=== PATIENT | male | born 1970 | race Caucasian/White ===

== ENCOUNTER 2018-11-02 15:39 | Inpatient (IN) | payer OTHER, MEDICAID ==
[~2018-11-02] VITALS: Ht 170.2 cm; Wt 94.8 kg
[2018-11-02 15:50] VITALS: BP_SYST 103
[2018-11-02 16:39] LABS: HEMOGLOBIN 14.4 g/dL (14.0-18.0); MEAN CORPUSCULAR HEMOGLOBIN 28 pg (27-31); MEAN CORPUSCULAR HGB CONC 33 % (32-36); MEAN CORPUSCULAR VOLUME 84 fL (79.0-98.0); PLATELET COUNT (AUTO) 124 K/uL (130-430); RED BLOOD CELL COUNT(AUTO) 5.13 MIL/uL (4.2-6.2); RED CELL DISTRIBUTION WIDTH 15.1 % (9.0-15.0); WHITE BLOOD COUNT (AUTO) 4.4 K/uL (4.8-10.8)
[2018-11-02] MEDS ORDERED: ONDANSETRON HCL 4 MG/2 ML VIAL IVP ONE (16:45)
[2018-11-02] MEDS ORDERED: IBUPROFEN 600 MG TABLET PO ONE (16:45)
[2018-11-02] MEDS ORDERED: NACL 0.9% 1,000 ML IV ONE ×2 (16:45→18:45)
[2018-11-02] MEDS ORDERED: MORPHINE 4 MG/ML INJ. SYRINGE IVP ONE (16:45)
[2018-11-02 17:00] LABS: CREATININE 1.11 mg/dL (0.55-1.30); POTASSIUM 3.5 mmol/L (3.5-5.1)
[2018-11-02 17:06] LABS: ALBUMIN 2.9 g/dL (3.4-4.8); TOTAL BILIRUBIN 0.6 mg/dL (0.0-1.0)
[2018-11-02] MEDS ORDERED: LORazepam 2 MG/ML VIAL (FOR ER USE) IVP ONE (17:15)
[2018-11-02 17:22] LABS: BAND % (MANUAL) 12 % (0-6); BASOPHILS % (MANUAL) 0 % (0-2); EOSINOPHILS % (MANUAL) 0 % (0-7); LYMPHOCYTES % (MANUAL) 7 % (20-46); MONOCYTES % (MANUAL) 12 % (0-11)
[2018-11-02 18:09] LABS: BILIRUBIN,URINE NEGATIVE (NEGATIVE); BLOOD, URINE NEGATIVE (NEGATIVE); CLARITY/URINE CLEAR (CLEAR); COLOR,URINE YELLOW (YELLOW); GLUCOSE,URINE NEGATIVE (NEGATIVE); KETONES,URINE NEGATIVE (NEGATIVE); LEUKOCYTE ESTERASE ,URINE NEGATIVE (NEGATIVE); NITRITE, URINE NEGATIVE (NEGATIVE); PH,URINE 6.5 (5.0-8.0); PROTEIN URINE TRACE (NEGATIVE); UROBILINOGEN,URINE >=8 (0.2-1.0)
[2018-11-02] MEDS ORDERED: PIPERACILLIN/TAZO 3.375 GM in NS 50 ML IV ONE (18:15)
[2018-11-02] MEDS ORDERED: LACTULOSE 20 GM/30 ML UDC PO ONE (18:15)
[2018-11-02 18:16] LABS: BACTERIA,URINE FEW /HPF (None Seen); RBC,URINE 0-3 /HPF (0-3); WBC,URINE 0-3 /HPF (0-3)
[2018-11-02] MEDS ORDERED: MORP30TA59 PO (18:25)
[2018-11-02] MEDS ORDERED: LORA-258 PO (18:25)
[2018-11-02] MEDS ORDERED: OXYC20TA55 PO (18:25)
[2018-11-02] MEDS ORDERED: PIPERACILLIN/TAZOBACTAM 3.375 GM/VIAL (ZOSYN) IV ONE ×2 (18:30→21:53)
[2018-11-02 19:20] VITALS: BP_SYST 102
[2018-11-02] MEDS ORDERED: ONDANSETRON HCL 4 MG/2 ML VIAL IVP PRN (21:00)
[2018-11-02] MEDS ORDERED: IPRATROPIUM/ALBUTEROL SULFATE 3 ML AMPUL.NEB (DUONEB) INH SCH (21:00)
[2018-11-02] MEDS ORDERED: ACETAMINOPHEN 325 MG TABLET PO PRN (21:00)
[2018-11-02] MEDS ORDERED: HYDROcodone/ACETAMIN 5-325 MG TAB (NORCO/ VICODIN) PO PRN ×2 (21:00)
[2018-11-02] MEDS ORDERED: AZITHROMYCIN 250 MG TABLET PO ONE (21:00)
[2018-11-02] MEDS ORDERED: TEMAZEPAM 15 MG CAPSULE PO PRN (21:00)
[2018-11-02] MEDS ORDERED: IPRATROPIUM/ALBUTEROL SULFATE 3 ML AMPUL.NEB (DUONEB) INH PRN (21:00)
[2018-11-02] MEDS ORDERED: oxyCODONE HCL 10 MG TAB.ER.12H PO PRN (21:00)
[2018-11-02 21:53] VITALS: BP_SYST 102
[2018-11-02] MEDS: NACL 0.9% 1,000 ML IV SCH (21:57)
[2018-11-02] MEDS: LORazepam 1 MG TABLET PO PRN (21:58)
[2018-11-02] MEDS: AZITHROMYCIN 250 MG TABLET PO SCH (21:58)
[2018-11-02] MEDS: MORPHINE SULFATE 30 MG TABLET.SA PO SCH (21:58)
[2018-11-02 23:20] VITALS: BP_SYST 92
[2018-11-02] MEDS: PIPERACILLIN/TAZO 3.375/DEX-IS 50 ML IV SCH (23:58)
[2018-11-03] MEDS: NACL 0.9% 1,000 ML IV SCH ×4 (06:07→22:30)
[2018-11-03] MEDS: PIPERACILLIN/TAZO 3.375/DEX-IS 50 ML IV SCH ×3 (06:07→17:40)
[2018-11-03 07:49] LABS: BASOPHILS % (AUTO) 0.3 % (0.0-2.0); HEMATOCRIT 38.5 % (36-54); HEMOGLOBIN 12.7 g/dL (14.0-18.0); LYMPHOCYTES % (AUTO) 25.8 % (20.5-51.5); MEAN CORPUSCULAR HEMOGLOBIN 28 pg (27-31); MEAN CORPUSCULAR HGB CONC 33 % (32-36); MEAN CORPUSCULAR VOLUME 84 fL (79.0-98.0); MONOCYTES # (AUTO) 0.3 K/uL (0.0-1.0); MONOCYTES % (AUTO) 7.8 % (1.7-9.3); NEUTROPHILS # (AUTO) 2.6 K/uL (1.8-7.7); NEUTROPHILS % (AUTO) 66.1 % (40.0-70.0); PLATELET COUNT (AUTO) 117 K/uL (130-430); RED BLOOD CELL COUNT(AUTO) 4.58 MIL/uL (4.2-6.2); RED CELL DISTRIBUTION WIDTH 15.1 % (9.0-15.0); WHITE BLOOD COUNT (AUTO) 3.9 K/uL (4.8-10.8)
[2018-11-03 08:08] LABS: ALBUMIN 2.4 g/dL (3.4-4.8); CALCIUM 7.5 mg/dL (8.4-11.0); CREATININE 1.11 mg/dL (0.55-1.30); POTASSIUM 3.3 mmol/L (3.5-5.1); TOTAL BILIRUBIN 0.6 mg/dL (0.0-1.0)
[2018-11-03 08:28] VITALS: BP_SYST 100
[2018-11-03] MEDS: MORPHINE SULFATE 30 MG TABLET.SA PO SCH ×2 (08:42→21:00)
[2018-11-03] MEDS ORDERED: POTASSIUM CHLORIDE 20 MEQ TAB.PRT.SR PO ONE ×2 (10:00→10:45)
[2018-11-03] MEDS: IPRATROPIUM/ALBUTEROL SULFATE 3 ML AMPUL.NEB (DUONEB) INH SCH ×3 (11:08→20:08)
[2018-11-03 11:26] VITALS: BP_SYST 102
[2018-11-03 15:52] VITALS: BP_SYST 114
[2018-11-03 21:41] VITALS: BP_SYST 95
[2018-11-03] MEDS: AZITHROMYCIN 250 MG TABLET PO SCH (21:46)
[2018-11-04] VITALS: BP_SYST 95
[2018-11-04] MEDS: PIPERACILLIN/TAZO 3.375/DEX-IS 50 ML IV SCH ×5 (00:42→23:26)
[2018-11-04] MEDS: IPRATROPIUM/ALBUTEROL SULFATE 3 ML AMPUL.NEB (DUONEB) INH SCH ×4 (07:00→20:05)
[2018-11-04 07:41] LABS: BASOPHILS % (AUTO) 0.6 % (0.0-2.0); EOSINOPHILS % (AUTO) 0.1 % (0.0-4.0); HEMATOCRIT 37.1 % (36-54); HEMOGLOBIN 12.2 g/dL (14.0-18.0); LYMPHOCYTES # (AUTO) 1.3 K/uL (1.0-5.5); LYMPHOCYTES % (AUTO) 41.2 % (20.5-51.5); MEAN CORPUSCULAR HEMOGLOBIN 28 pg (27-31); MEAN CORPUSCULAR HGB CONC 33 % (32-36); MEAN CORPUSCULAR VOLUME 85 fL (79.0-98.0); MONOCYTES # (AUTO) 0.2 K/uL (0.0-1.0); MONOCYTES % (AUTO) 8.1 % (1.7-9.3); NEUTROPHILS # (AUTO) 1.5 K/uL (1.8-7.7); PLATELET COUNT (AUTO) 125 K/uL (130-430); RED BLOOD CELL COUNT(AUTO) 4.39 MIL/uL (4.2-6.2); RED CELL DISTRIBUTION WIDTH 15.1 % (9.0-15.0)
[2018-11-04 07:45] VITALS: BP_SYST 101
[2018-11-04 08:05] LABS: ALBUMIN 2.2 g/dL (3.4-4.8); CALCIUM 7.4 mg/dL (8.4-11.0); CREATININE 0.95 mg/dL (0.55-1.30); POTASSIUM 3.8 mmol/L (3.5-5.1); TOTAL BILIRUBIN 0.5 mg/dL (0.0-1.0)
[2018-11-04] MEDS: NACL 0.9% 1,000 ML IV SCH (08:21)
[2018-11-04] MEDS: MORPHINE SULFATE 30 MG TABLET.SA PO SCH ×2 (08:33→21:00)
[2018-11-04] MEDS ORDERED: BUDESONIDE 0.5 MG/2 ML AMPUL.NEB INH ONE (09:30)
[2018-11-04] MEDS: LORazepam 1 MG TABLET PO PRN (10:59)
[2018-11-04 12:00] VITALS: BP_SYST 105
[2018-11-04] MEDS ORDERED: METOCLOPRAMIDE HCL 10 MG/2 ML VIAL IVP PRN (12:30)
[2018-11-04] MEDS ORDERED: ONDANSETRON HCL 4 MG/2 ML VIAL IVP PRN (12:30)
[2018-11-04] MEDS ORDERED: PANTOPRAZOLE SODIUM 40 MG/VIAL (PROTONIX) IVP ONE (12:30)
[2018-11-04] MEDS: FLUCONAZOLE 400 mg/ NS 200 ML IV SCH (13:17)
[2018-11-04 16:40] VITALS: BP_SYST 90
[2018-11-04] MEDS: BUDESONIDE 0.5 MG/2 ML AMPUL.NEB INH SCH (20:05)
[2018-11-04 22:05] VITALS: BP_SYST 99
[2018-11-04] MEDS: AZITHROMYCIN 250 MG TABLET PO SCH (22:09)
[2018-11-04 23:59] VITALS: BP_SYST 108
[2018-11-05] MEDS: PIPERACILLIN/TAZO 3.375/DEX-IS 50 ML IV SCH ×3 (05:27→17:51)
[2018-11-05] MEDS: IPRATROPIUM/ALBUTEROL SULFATE 3 ML AMPUL.NEB (DUONEB) INH SCH ×4 (07:08→19:50)
[2018-11-05] MEDS: BUDESONIDE 0.5 MG/2 ML AMPUL.NEB INH SCH ×2 (07:09→19:51)
[2018-11-05 07:55] VITALS: BP_SYST 96
[2018-11-05 08:02] VITALS: BP_SYST 108
[2018-11-05] MEDS: MORPHINE SULFATE 30 MG TABLET.SA PO SCH ×2 (09:00→21:48)
[2018-11-05] MEDS: PANTOPRAZOLE SODIUM 40 MG/VIAL (PROTONIX) IVP SCH (09:45)
[2018-11-05 11:30] VITALS: BP_SYST 92
[2018-11-05] MEDS: FLUCONAZOLE 400 mg/ NS 200 ML IV SCH (12:42)
[2018-11-05] MEDS ORDERED: methylPREDNISolone SOD SUCC/PF 62.5 MG/ML VIAL IVP ONE (13:45)
[2018-11-05 15:34] VITALS: BP_SYST 96
[2018-11-05 20:15] VITALS: BP_SYST 112
[2018-11-05] MEDS: AZITHROMYCIN 250 MG TABLET PO SCH (21:48)
[2018-11-06] MEDS: PIPERACILLIN/TAZO 3.375/DEX-IS 50 ML IV SCH ×4 (00:11→18:18)
[2018-11-06 01:05] VITALS: BP_SYST 105
[2018-11-06] MEDS: LORazepam 1 MG TABLET PO PRN (02:09)
[2018-11-06 07:29] LABS: BASOPHILS % (AUTO) 0.3 % (0.0-2.0); HEMATOCRIT 42.1 % (36-54); HEMOGLOBIN 13.9 g/dL (14.0-18.0); LYMPHOCYTES # (AUTO) 0.9 K/uL (1.0-5.5); LYMPHOCYTES % (AUTO) 23.6 % (20.5-51.5); MEAN CORPUSCULAR HEMOGLOBIN 28 pg (27-31); MEAN CORPUSCULAR HGB CONC 33 % (32-36); MEAN CORPUSCULAR VOLUME 85 fL (79.0-98.0); MONOCYTES # (AUTO) 0.2 K/uL (0.0-1.0); MONOCYTES % (AUTO) 5.4 % (1.7-9.3); NEUTROPHILS # (AUTO) 2.6 K/uL (1.8-7.7); PLATELET COUNT (AUTO) 217 K/uL (130-430); RED BLOOD CELL COUNT(AUTO) 4.97 MIL/uL (4.2-6.2); RED CELL DISTRIBUTION WIDTH 15.3 % (9.0-15.0); WHITE BLOOD COUNT (AUTO) 3.6 K/uL (4.8-10.8)
[2018-11-06 07:41] LABS: ALBUMIN 2.7 g/dL (3.4-4.8); CALCIUM 8.8 mg/dL (8.4-11.0); CREATININE 1.03 mg/dL (0.55-1.30); POTASSIUM 4.1 mmol/L (3.5-5.1); TOTAL BILIRUBIN 0.5 mg/dL (0.0-1.0)
[2018-11-06 08:10] VITALS: BP_SYST 133
[2018-11-06 09:07] LABS: NEUTROPHILS % (AUTO) 70.7 % (40.0-70.0)
[2018-11-06] MEDS: PANTOPRAZOLE SODIUM 40 MG/VIAL (PROTONIX) IVP SCH (09:55)
[2018-11-06] MEDS: MORPHINE SULFATE 30 MG TABLET.SA PO SCH ×2 (09:55→22:11)
[2018-11-06 13:02] VITALS: BP_SYST 112
[2018-11-06] MEDS: FLUCONAZOLE 400 mg/ NS 200 ML IV SCH (14:08)
[2018-11-06] MEDS: BUDESONIDE 0.5 MG/2 ML AMPUL.NEB INH SCH ×2 (15:25→19:31)
[2018-11-06] MEDS: IPRATROPIUM/ALBUTEROL SULFATE 3 ML AMPUL.NEB (DUONEB) INH SCH ×3 (15:25→19:30)
[2018-11-06] MEDS ORDERED: DIATR MEGLU/DIATRIZ SOD 30 ML SOLUTION PO ONE (15:34)
[2018-11-06 16:37] VITALS: BP_SYST 104
[2018-11-06] MEDS ORDERED: IOHEXOL 100 ML IV ONE (18:38)
[2018-11-06 20:05] VITALS: BP_SYST 100
[2018-11-07] MEDS: PIPERACILLIN/TAZO 3.375/DEX-IS 50 ML IV SCH ×4 (00:11→19:02)
[2018-11-07 01:02] VITALS: BP_SYST 88
[2018-11-07 02:00] VITALS: BP_SYST 100
[2018-11-07] MEDS: IPRATROPIUM/ALBUTEROL SULFATE 3 ML AMPUL.NEB (DUONEB) INH SCH ×4 (07:00→21:22)
[2018-11-07] MEDS: BUDESONIDE 0.5 MG/2 ML AMPUL.NEB INH SCH ×2 (07:00→21:32)
[2018-11-07 07:31] LABS: BASOPHILS % (AUTO) 0.2 % (0.0-2.0); EOSINOPHILS % (AUTO) 0.2 % (0.0-4.0); HEMATOCRIT 37.6 % (36-54); HEMOGLOBIN 12.7 g/dL (14.0-18.0); LYMPHOCYTES # (AUTO) 2.1 K/uL (1.0-5.5); LYMPHOCYTES % (AUTO) 35.5 % (20.5-51.5); MEAN CORPUSCULAR HEMOGLOBIN 28 pg (27-31); MEAN CORPUSCULAR HGB CONC 34 % (32-36); MEAN CORPUSCULAR VOLUME 84 fL (79.0-98.0); MONOCYTES # (AUTO) 0.5 K/uL (0.0-1.0); MONOCYTES % (AUTO) 9.3 % (1.7-9.3); NEUTROPHILS # (AUTO) 3.2 K/uL (1.8-7.7); NEUTROPHILS % (AUTO) 54.8 % (40.0-70.0); PLATELET COUNT (AUTO) 243 K/uL (130-430); RED BLOOD CELL COUNT(AUTO) 4.47 MIL/uL (4.2-6.2); RED CELL DISTRIBUTION WIDTH 15.5 % (9.0-15.0); WHITE BLOOD COUNT (AUTO) 5.8 K/uL (4.8-10.8)
[2018-11-07 07:41] LABS: ALBUMIN 2.5 g/dL (3.4-4.8); CALCIUM 8.3 mg/dL (8.4-11.0); CREATININE 1.07 mg/dL (0.55-1.30); POTASSIUM 3.6 mmol/L (3.5-5.1); TOTAL BILIRUBIN 0.5 mg/dL (0.0-1.0)
[2018-11-07 07:45] VITALS: BP_SYST 96
[2018-11-07] MEDS ORDERED: methylPREDNISolone SOD SUCC 40 MG/ML VIAL IVP ONE (10:00)
[2018-11-07] MEDS: PANTOPRAZOLE SODIUM 40 MG/VIAL (PROTONIX) IVP SCH (10:07)
[2018-11-07] MEDS: MORPHINE SULFATE 30 MG TABLET.SA PO SCH ×2 (10:07→22:17)
[2018-11-07] MEDS: FLUCONAZOLE 400 mg/ NS 200 ML IV SCH (12:07)
[2018-11-07] MEDS ORDERED: LACTULOSE 20 GM/30 ML UDC PO ONE (13:30)
[2018-11-07] MEDS ORDERED: MINERAL OIL 30 ML UDC PO ONE (13:45)
[2018-11-07] MEDS ORDERED: METOCLOPRAMIDE HCL 10 MG TABLET PO PRN (13:45)
[2018-11-07] MEDS ORDERED: DOCUSATE SODIUM 250 MG CAPSULE PO ONE (13:45)
[2018-11-07 16:36] VITALS: BP_SYST 92
[2018-11-07 20:20] VITALS: BP_SYST 113
[2018-11-07] MEDS: DOCUSATE SODIUM 250 MG CAPSULE PO SCH (22:17)
[2018-11-08 00:10] VITALS: BP_SYST 106
[2018-11-08] MEDS: PIPERACILLIN/TAZO 3.375/DEX-IS 50 ML IV SCH ×3 (00:10→11:05)
[2018-11-08] MEDS: BUDESONIDE 0.5 MG/2 ML AMPUL.NEB INH SCH (07:41)
[2018-11-08] MEDS: IPRATROPIUM/ALBUTEROL SULFATE 3 ML AMPUL.NEB (DUONEB) INH SCH ×3 (07:41→15:10)
[2018-11-08 08:00] VITALS: BP_SYST 102
[2018-11-08] MEDS: MORPHINE SULFATE 30 MG TABLET.SA PO SCH (08:22)
[2018-11-08] MEDS: PANTOPRAZOLE SODIUM 40 MG/VIAL (PROTONIX) IVP SCH (08:22)
[2018-11-08] MEDS: DOCUSATE SODIUM 250 MG CAPSULE PO SCH (08:22)
[2018-11-08 08:29] VITALS: BP_SYST 106
[2018-11-08] MEDS ORDERED: methylPREDNISolone SOD SUCC 40 MG/ML VIAL IVP SCH (09:00)
[2018-11-08] MEDS: FLUCONAZOLE 400 mg/ NS 200 ML IV SCH (11:57)
[2018-11-08 12:19] VITALS: BP_SYST 103
[2018-11-08] MEDS ORDERED: AMOX-426 PO (13:43)
[2018-11-08] MEDS ORDERED: FLUC200T PO (13:44)
[2018-11-08] MEDS ORDERED: DOCU250C14 PO (13:45)
[2018-11-08] MEDS ORDERED: L.RH1CAP PO (13:45)
[2018-11-08] MEDS ORDERED: MED4 PO (13:47)
[2018-11-08 14:27] VITALS: BP_SYST 128
[2018-11-08 16:00] VITALS: BP_SYST 118
[2018-11-09] MEDS ORDERED: PREDNISONE 20 MG TABLET PO SCH (09:00)
== END 2018-11-08 16:30 | disposition home health service (06) | DRG 871 ==
LOC: SED 15:39 → STU 18:48 → SMU 11-03 16:16
PROVIDERS: ADMIT Internal Medicine; ATTEND Internal Medicine
DX: A41.9 Sepsis, unspecified organism (principal); J18.9 Pneumonia, unspecified organism; G92 Toxic encephalopathy; R65.21 Severe sepsis with septic shock; E43 Unspecified severe protein-calorie malnutrition; E87.1 Hypo-osmolality and hyponatremia; D61.818 Other pancytopenia; G47.33 Obstructive sleep apnea (adult) (pediatric); G89.4 Chronic pain syndrome; J98.01 Acute bronchospasm; K56.41 Fecal impaction; N30.90 Cystitis, unspecified without hematuria; K76.0 Fatty (change of) liver, not elsewhere classified; D69.6 Thrombocytopenia, unspecified; E66.9 Obesity, unspecified; Z68.32 Body mass index [BMI] 32.0-32.9, adult; Z89.612 Acquired absence of left leg above knee; Z87.828 Personal history of other (healed) physical injury and trauma; Z85.72 Personal history of non-Hodgkin lymphomas; Z79.899 Other long term (current) drug therapy
CPT/HCPCS: 36415; 71045; 71260-TC; 71270-TC; 74160-TC; 80053; 81000-TC; 83605; 85007; 85025; 85027; 86480; 86635; 86738; 87040-TC; 87081; 87086; 87449; 93306; 94640; 94760; 96361; 96365; 96375; 99285; C9113; G0378; J1030; J1450; J2060; J2270; J2274; J2405; J2543; J2930; J7030; J7060; J7620; J7626; Q0144; Q9964; Q9967